=== PATIENT | female | born 1965 | race Caucasian/White ===

== ENCOUNTER 2017-07-10 15:18 | Observation (INO) | payer BC ==
[~2017-07-10] VITALS: Ht 167.6 cm; Wt 103.7 kg
[~2017-07-10 15:18] MED LIST: BACTRIM,SEPT1 TABLET PO; ESTRACE2 MG PO; MEDROL DOSEPAK4 MG PO; PEPCID20 MG PO; PROVERA,CYCRIN10 MG PO
[2017-07-10 17:21] LABS: HEMATOCRIT 45.4 % (36.0-46.0); HEMOGLOBIN 15.1 G/DL (11.9-15.5); MCH 29.6 PG (29.0-34.0); MCHC 33.3 G/DL (30.0-36.0); PLATELET COUNT 359 K/uL (156-360); RBC DIS.WIDTH-CV 12.2 % (11.8-14.6); RBC DIS.WIDTH-SD 40.1 % (39-53); WHITE BLOOD COUNT 7.2 K/uL (4.1-10.2)
[2017-07-10 17:48] LABS: ALBUMIN 4.7 G/DL (3.2-4.8); CHLORIDE 103 MEQ/L (99-109); DIRECT BILIRUBIN 0.1 mg/dL (0.0-0.3); POTASSIUM 4.3 MEQ/L (3.7-5.4); SODIUM 139 MEQ/L (136-147); TOTAL BILIRUBIN 1.1 MG/DL (0.0-1.0)
[2017-07-10 17:54] LABS: ALKALINE PHOSPHATASE 95 IU/L (3-129); ALT (GPT) 27 IU/L (3-49); AST (GOT) 18 IU/L (2-34); CREATININE 0.9 MG/DL (0.6-1.3); GFR ESTIMATE (CALCULATED) > 59 mL/min/; GLUCOSE 104 mg/dL (70-99); LIPASE 23 U/L (1.0-51.0); UREA NITROGEN (BUN) 18 mg/dL (9-23)
[2017-07-10 17:56] LABS: TROP-I INTERPRETATION NEGATIVE; TROPONIN-I < 0.01 ng/mL (0.0-0.30)
[2017-07-10 18:49] LABS: MAGNESIUM 2.1 mg/dl (1.3-2.7)
[2017-07-10 19:43] LABS: THYROTROPIN (TSH) 0.72 MIU/L (0.4-5.5)
[2017-07-10] MEDS ORDERED: C-500500 M1 PO (20:31)
[2017-07-10 21:41] VITALS: BP 116/70
[2017-07-11] LABS: TROP-I INTERPRETATION NEGATIVE; TROPONIN-I < 0.01 ng/mL (0.0-0.30)
[2017-07-11 00:25] VITALS: BP 115/61
[2017-07-11 04:19] VITALS: BP 99/58
[2017-07-11 06:47] LABS: TROP-I INTERPRETATION NEGATIVE; TROPONIN-I < 0.01 ng/mL (0.0-0.30)
[2017-07-11 06:49] LABS: TRIGLYCERIDES 187 MG/DL (Normal: <150)
[2017-07-11 06:50] LABS: HDL CHOLESTEROL 38 MG/DL (Desirable>=50); LDL CHOLESTEROL 67 mg/dL (Desirable<100); NON-HDL CHOLESTEROL 104 mg/dL (Desirable<160); TOTAL CHOLESTEROL 142 mg/dL (Desirable<200)
[2017-07-11 07:49] VITALS: BP 114/56
[2017-07-11 11:46] VITALS: BP 99/57
== END 2017-07-11 14:47 | disposition home or self-care (01) ==
LOC: EME 15:18 → EDOF 20:12 → 5WEST 20:12 → ENRESERV 20:15 → 5WEST 21:23
PROVIDERS: Physician Assistant
DX: R07.9 Chest pain, unspecified (principal); R11.0 Nausea; R61 Generalized hyperhidrosis; R00.2 Palpitations; R42 Dizziness and giddiness; Z82.49 Family history of ischemic heart disease and other diseases of the circulatory system; E66.01 Morbid (severe) obesity due to excess calories; Z87.891 Personal history of nicotine dependence; Z79.890 Hormone replacement therapy; Z90.710 Acquired absence of both cervix and uterus; Z90.49 Acquired absence of other specified parts of digestive tract; Z83.3 Family history of diabetes mellitus
CPT/HCPCS: 71046; 71275; 80048; 80061; 80076; 83690; 83735; 84443; 84484; 85027; 85379; 87502; 93005; 93306; 99281; 99285; G0378; J1885; J7030; S0028